=== PATIENT | female | born 2000 | race Caucasian/White ===

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

== ENCOUNTER → 2020-04-20 | Outpatient (REF) | payer OTHER ==
[~2020-04-20] MED LIST changes: +NAPR-837 PO
[2020-04-20 16:04] LABS: AMORPHOUS SEDIMENT LARGE (NEGATIVE); APPEARANCE, URINE TURBID (CLEAR); BACTERIA, URINE AUTO NEGATIVE (NEGATIVE); BILIRUBIN, URINE AUTO NEGATIVE (NEGATIVE); BLOOD, URINE BLOOD 3+ (NEGATIVE); COLOR, URINE YELLOW (YELLOW); GLUCOSE, URINE (UA) AUTO NEGATIVE (NEGATIVE); KETONE, URINE AUTO NEGATIVE (NEGATIVE); LEUKOCYTE ESTERASE, URINE AUTO NEGATIVE (NEGATIVE); MUCUS, URINE MODERATE (NEGATIVE); NITRITE, URINE AUTO NEGATIVE (NEGATIVE); PROTEIN, URINE AUTO 1+ mg/dL (NEGATIVE); RBC, URINE AUTO 2 /HPF (0-3); SPECIFIC GRAVITY URINE AUTO 1.028 (1.002-1.035); SQUAMOUS EPITHELIAL CELL UR AU 0 /HPF (0-6); UROBILINOGEN, URINE AUTO 0.2 mg/dL (0.0-2.0); WBC, URINE AUTO 0 /HPF (0-3)
== END ==
LOC: M SFHCLERA 15:37
PROVIDERS: ATTEND Family Medicine
DX: R30.0 Dysuria (principal)

== ENCOUNTER → 2020-04-21 | Outpatient (CLI) | payer OTHER ==
[2020-04-21 15:33] LABS: ALBUMIN 4.1 GM/DL (3.2-5.2); ALT/SGPT 38 U/L (12-78); BILIRUBIN,TOTAL 1.4 MG/DL (0.2-1.0); BLOOD UREA NITROGEN 11 MG/DL (7-18); CARBON DIOXIDE LEVEL 26 MEQ/L (21-32); CHLORIDE LEVEL 106 MEQ/L (98-107); CREATININE FOR GFR 0.52 MG/DL (0.55-1.30); FREE T4 0.96 NG/DL (0.78-1.33); GLUCOSE, FASTING 82 MG/DL (70-100); POTASSIUM SERUM 3.9 MEQ/L (3.5-5.1); SODIUM LEVEL 139 MEQ/L (136-145); THYROID STIMULATING HORMONE 0.651 uIU/ML (0.463-3.98)
[2020-04-21 15:53] LABS: BASO % 0.6 % (0.0-1.0); EOS # 0.1 10^3/uL (0.0-0.5); EOS % 1.4 % (0.0-3.0); HEMATOCRIT 36.4 % (36.0-47.0); HEMOGLOBIN 11.9 g/dl (12.0-15.5); LYMPH # 1.5 10^3/uL (1.5-5.0); LYMPH % 28.8 % (24.0-44.0); MEAN CORPUSCULAR HEMOGLOBIN 30.6 pg (27.0-33.0); MEAN CORPUSCULAR HGB CONC 32.7 g/dl (32.0-36.5); MEAN CORPUSCULAR VOLUME 93.6 fl (80.0-96.0); MONO # 0.4 10^3/uL (0.0-0.8); MONO % 7.5 % (2.0-8.0); NEUTROPHILS # 3.2 10^3/uL (1.5-8.5); NEUTROPHILS % 61.5 % (36.0-66.0); PLATELET COUNT, AUTOMATED 172 10^3/uL (150-450); RED BLOOD COUNT 3.89 10^6/uL (4.00-5.40); WHITE BLOOD COUNT 5.2 10^3/uL (4.0-10.0)
== END ==
LOC: M LAB 13:24
PROVIDERS: ATTEND Family Medicine
DX: R63.6 Underweight (principal)

== ENCOUNTER 2020-08-13 21:42 | Emergency (ER) | payer OTHER ==
[~2020-08-13] VITALS: Ht 160 cm; Wt 41.8 kg
[~2020-08-13 21:42] MED LIST changes: -SIME180C PO; +SIME180C25 PO
[2020-08-14 00:32] LABS: BASO # 0.1 10^3/uL (0.0-0.2); BASO % 0.7 % (0.0-1.0); EOS # 0.1 10^3/uL (0.0-0.5); EOS % 1.9 % (0.0-3.0); HEMATOCRIT 40.5 % (36.0-47.0); LYMPH # 2.2 10^3/uL (1.5-5.0); LYMPH % 29.7 % (24.0-44.0); MEAN CORPUSCULAR HEMOGLOBIN 30.2 pg (27.0-33.0); MEAN CORPUSCULAR HGB CONC 32.1 g/dl (32.0-36.5); MONO # 0.7 10^3/uL (0.0-0.8); MONO % 9.6 % (2.0-8.0); NEUTROPHILS # 4.2 10^3/uL (1.5-8.5); PLATELET COUNT, AUTOMATED 208 10^3/uL (150-450); RED BLOOD COUNT 4.31 10^6/uL (4.00-5.40); WHITE BLOOD COUNT 7.3 10^3/uL (4.0-10.0)
[2020-08-14 00:48] LABS: HCG, SERUM QUALITATIVE NEGATIVE (NEGATIVE)
[2020-08-14 00:52] LABS: ALBUMIN 4.4 GM/DL (3.2-5.2); ALT/SGPT 26 U/L (12-78); BILIRUBIN,DIRECT 0.2 MG/DL (0.0-0.2); BILIRUBIN,TOTAL 0.9 MG/DL (0.2-1.0); BLOOD UREA NITROGEN 12 MG/DL (7-18); CALCIUM LEVEL 9.3 MG/DL (8.5-10.1); CARBON DIOXIDE LEVEL 29 MEQ/L (21-32); CHLORIDE LEVEL 112 MEQ/L (98-107); GLUCOSE, FASTING 94 MG/DL (70-100); LIPASE 102 U/L (73-393); POTASSIUM SERUM 4.1 MEQ/L (3.5-5.1); SODIUM LEVEL 146 MEQ/L (136-145); TOTAL PROTEIN 7.8 GM/DL (6.4-8.2)
[2020-08-14] MEDS ORDERED: NS 1,000 ML IV ONE (01:05)
[2020-08-14] MEDS ORDERED: ISOVUE-370 76% 100ML VIAL As Ordered ONE (01:08)
--- NOTE | 2020-08-14 02:15 | REPVR ---
PROCEDURE INFORMATION: Exam: CT Abdomen And Pelvis With Contrast Exam date and time: 08/14/2020 1:01 AM Age: 19 years old Clinical indication: Abdominal pain; Localized; Left lower quadrant (llq); Additional info: Llq pain TECHNIQUE: Imaging protocol: Computed tomography of the abdomen and pelvis with contrast. Radiation optimization: All CT scans at this facility use at least one of these dose optimization techniques: automated exposure control; mA and/or kV adjustment per patient size (includes targeted exams where dose is matched to clinical indication); or iterative reconstruction. Contrast material: ISO; Contrast volume: 100 ml; Contrast route: INTRAVENOUS (IV); COMPARISON: 1. CT ABD PELVIS W/O CONTRAST 11/06/2019 3:18 AM 2. US PELVIC NON-OB COMPLETE 11/06/2019 2:04:04 AM FINDINGS: Lungs: The imaged portions of the lung bases are clear. The lungs were not fully imaged. Heart: No cardiomegaly or pericardial effusion. Diaphragm: Intact. Liver: Unremarkable. No liver lesion is identified. The contour of the liver is smooth. No hepatomegaly is noted. Gallbladder and bile ducts: No calcified gallstones are noted. No gallbladder wall thickening, pericholecystic fluid, or pericholecystic inflammatory changes are identified. No dilation of the bile ducts is noted. No calcified stones are seen in the common bile duct. Pancreas: Normal. No dilation of the main pancreatic duct is noted. Spleen: Normal. No splenomegaly is noted. Adrenal glands: Normal. No adrenal mass is noted. Kidneys and ureters: The kidneys are normal in appearance. No renal lesion is noted. No stones are noted in the kidneys or ureters. There is no hydronephrosis or hydroureter. There are no wedge-shaped areas of low attenuation in the kidneys to suggest pyelonephritis. There is no renal abscess or perinephric fluid collection. Stomach and bowel: The stomach and small bowel are unremarkable. There is no evidence for a bowel obstruction, diverticulosis, diverticulitis, perforated viscus, pneumatosis intestinalis, intussusception, or volvulus. The distal ascending colon, transverse colon, descending colon, and proximal sigmoid colon are decompressed, limiting their optimal evaluation. There is no pericolonic inflammatory fat stranding. Appendix: There are no findings to suggest acute appendicitis. Intraperitoneal space: There is a trace amount of water density free fluid in the cul-de-sac. No abscess or intraperitoneal free air is noted. Retroperitoneal space: No fluid collection. No mass. Vasculature: The abdominal aorta is patent, normal in caliber, and there is no dissection. The iliac arteries, common femoral arteries, renal arteries, celiac artery, superior mesenteric artery, and inferior mesenteric artery are patent. The common femoral veins, iliac veins, and inferior vena cava are patent. Incidental note is made of a circumaortic left renal vein. Lymph nodes: No enlarged lymph nodes. Urinary bladder: The partially distended urinary bladder is unremarkable. No stones or masses are seen in the bladder. Reproductive: The uterus is retroverted. There is a 2.4 cm dominant follicular cyst in the left ovary. The right ovary is unremarkable. Bones/joints: There is no fracture or dislocation. No suspicious osteolytic or osteoblastic lesion. Soft tissues: Incidental note is made of a piercing in the umbilical region. No hernia or soft tissue fluid collection is noted. IMPRESSION: 2.4 cm dominant follicular cyst in the left ovary and a trace amount of free fluid in the cul-de-sac. Electronically signed by: Aravind Echols On 08/14/2020 02:14:41 AM
[2020-08-14] MEDS ORDERED: NITROFURANTOIN (MACROBID) 100 MG CAP PO ONE (02:50)
[2020-08-14] MEDS ORDERED: MACR100C43 PO (02:54)
[2020-08-14 03:08] VITALS: BP 102/63
== END 2020-08-14 03:10 | disposition home or self-care (01) ==
LOC: M ED 21:42
DX: N39.0 Urinary tract infection, site not specified (principal); N83.202 Unspecified ovarian cyst, left side; K21.9 Gastro-esophageal reflux disease without esophagitis; Z79.899 Other long term (current) drug therapy
CPT/HCPCS: 74177; 80048; 80076; 81001; 83690; 84703; 85025; 87088; 87186; 96360; 96361; 99284; Q9967

== ENCOUNTER → 2020-12-27 | Outpatient (CLI) | payer OTHER ==
[~2020-12-27] MED LIST changes: +CEPH500C PO; +MACR100C43 PO
[2020-12-27 16:38] LABS: FREE T4 1.14 NG/DL (0.78-1.33); THYROID STIMULATING HORMONE 0.743 uIU/ML (0.463-3.98)
[2020-12-27 16:40] LABS: PROGESTERONE 7.73 NG/ML; PROLACTIN 7.9 NG/ML
[2020-12-27 16:41] LABS: LUTEINIZING HORMONE 2.2 mIU/mL
== END ==
LOC: M PLALAB 13:25
PROVIDERS: ATTEND Specialist
DX: N92.6 Irregular menstruation, unspecified (principal)
CPT/HCPCS: 36415; 83001; 83002; 84144; 84146; 84439; 84443; G0463

== ENCOUNTER → 2021-02-24 | Outpatient (CLI) | payer OTHER ==
[~2021-02-24] MED LIST changes: -CEPH500C PO
[2021-02-24 17:10] LABS: APPEARANCE, URINE CLEAR (CLEAR); BACTERIA, URINE AUTO 1+ (NEGATIVE); BILIRUBIN, URINE AUTO NEGATIVE (NEGATIVE); BLOOD, URINE BLOOD 1+ (NEGATIVE); COLOR, URINE STRAW (YELLOW); GLUCOSE, URINE (UA) AUTO NEGATIVE (NEGATIVE); KETONE, URINE AUTO NEGATIVE (NEGATIVE); LEUKOCYTE ESTERASE, URINE AUTO NEGATIVE (NEGATIVE); NITRITE, URINE AUTO NEGATIVE (NEGATIVE); PROTEIN, URINE AUTO NEGATIVE (NEGATIVE); RBC, URINE AUTO 2 /HPF (0-3); SPECIFIC GRAVITY URINE AUTO 1.005 (1.002-1.035); SQUAMOUS EPITHELIAL CELL UR AU 0 /HPF (0-6); UROBILINOGEN, URINE AUTO 0.2 mg/dL (0.0-2.0); WBC, URINE AUTO 3 /HPF (0-3)
== END ==
LOC: M PLALAB 15:27
PROVIDERS: ATTEND Obstetrics & Gynecology
DX: R30.0 Dysuria (principal)

== ENCOUNTER → 2021-03-04 | Outpatient (CLI) | payer OTHER ==
[~2021-03-04] MED LIST changes: +CEPH500C PO
[2021-03-04 17:15] LABS: BASO # 0.1 10^3/uL (0.0-0.2); BASO % 0.5 % (0.0-1.0); EOS # 0.1 10^3/uL (0.0-0.5); EOS % 1.3 % (0.0-3.0); HEMATOCRIT 36.2 % (36.0-47.0); HEMOGLOBIN 11.8 g/dl (12.0-15.5); LYMPH # 1.7 10^3/uL (1.5-5.0); LYMPH % 18.8 % (24.0-44.0); MEAN CORPUSCULAR HEMOGLOBIN 30.1 pg (27.0-33.0); MEAN CORPUSCULAR HGB CONC 32.6 g/dl (32.0-36.5); MEAN CORPUSCULAR VOLUME 92.3 fl (80.0-96.0); MONO # 0.7 10^3/uL (0.0-0.8); MONO % 7.2 % (2.0-8.0); NEUTROPHILS # 6.6 10^3/uL (1.5-8.5); PLATELET COUNT, AUTOMATED 195 10^3/uL (150-450); RED BLOOD COUNT 3.92 10^6/uL (4.00-5.40); WHITE BLOOD COUNT 9.2 10^3/uL (4.0-10.0)
[2021-03-04 18:25] LABS: HEPATITIS C VIRUS ABY INDEX < 0.0 INDEX (<0.8); HIV 1&2 SCREEN CENTAUR NEGATIVE (NEGATIVE)
[2021-03-04 19:28] LABS: GC DNA AMPLIFICATION NEGATIVE (NEGATIVE)
== END ==
LOC: M PLALAB 14:32
PROVIDERS: ATTEND Specialist
DX: Z34.01 Encounter for supervision of normal first pregnancy, first trimester (principal); Z3A.00 Weeks of gestation of pregnancy not specified

== ENCOUNTER 2021-03-06 16:36 | Emergency (ER) | payer OTHER ==
[~2021-03-06] VITALS: Ht 160 cm; Wt 46.4 kg
[~2021-03-06 16:36] MED LIST changes: -CEPH500C PO
[2021-03-06 16:40] VITALS: BP 112/64
[2021-03-06] MEDS ORDERED: ACETAMINOPHEN 500 MG TAB PO ONE (20:15)
[2021-03-06 21:57] LABS: BASO # 0.1 10^3/uL (0.0-0.2); BASO % 0.5 % (0.0-1.0); EOS # 0.1 10^3/uL (0.0-0.5); HEMATOCRIT 36.3 % (36.0-47.0); HEMOGLOBIN 12.2 g/dl (12.0-15.5); LYMPH % 19.1 % (24.0-44.0); MEAN CORPUSCULAR HEMOGLOBIN 30.1 pg (27.0-33.0); MEAN CORPUSCULAR HGB CONC 33.6 g/dl (32.0-36.5); MEAN CORPUSCULAR VOLUME 89.6 fl (80.0-96.0); MONO # 0.8 10^3/uL (0.0-0.8); MONO % 7.2 % (2.0-8.0); NEUTROPHILS # 7.6 10^3/uL (1.5-8.5); NEUTROPHILS % 71.9 % (36.0-66.0); PLATELET COUNT, AUTOMATED 185 10^3/uL (150-450); RED BLOOD COUNT 4.05 10^6/uL (4.00-5.40); WHITE BLOOD COUNT 10.5 10^3/uL (4.0-10.0)
[2021-03-06 22:42] LABS: BLOOD UREA NITROGEN 8 MG/DL (7-18); CALCIUM LEVEL 8.6 MG/DL (8.5-10.1); CARBON DIOXIDE LEVEL 24 MEQ/L (21-32); CHLORIDE LEVEL 108 MEQ/L (98-107); CREATININE FOR GFR 0.41 MG/DL (0.55-1.30); GLUCOSE, FASTING 117 MG/DL (70-100); HCG, SERUM QUANTITATIVE 111979 MIU/ML; POTASSIUM SERUM 3.7 MEQ/L (3.5-5.1); SODIUM LEVEL 139 MEQ/L (136-145)
[2021-03-06] MEDS ORDERED: CEPHALEXIN 500 MG CAP PO ONE (22:45)
[2021-03-06] MEDS ORDERED: CEPH500C PO (22:47)
== END 2021-03-06 22:56 | disposition home or self-care (01) ==
LOC: M ED 16:36
DX: O23.41 Unspecified infection of urinary tract in pregnancy, first trimester (principal); Z3A.08 8 weeks gestation of pregnancy; O99.341 Other mental disorders complicating pregnancy, first trimester; O99.611 Diseases of the digestive system complicating pregnancy, first trimester; Z87.448 Personal history of other diseases of urinary system; Z79.899 Other long term (current) drug therapy

== ENCOUNTER → 2021-04-01 | Outpatient (CLI) | payer OTHER ==
[~2021-04-01] MED LIST changes: +CEPH500C PO
== END ==
LOC: M PLALAB 09:50
PROVIDERS: ATTEND Specialist
DX: Z34.81 Encounter for supervision of other normal pregnancy, first trimester (principal); Z3A.12 12 weeks gestation of pregnancy
CPT/HCPCS: 36415; G0463

== ENCOUNTER → 2021-05-26 | Outpatient (CLI) | payer OTHER | LOC: M WHC 07:49 | PROVIDERS: ATTEND Specialist | DX: Z36.89 Encounter for other specified antenatal screening (principal); Z34.02 Encounter for supervision of normal first pregnancy, second trimester; Z3A.19 19 weeks gestation of pregnancy ==

== ENCOUNTER → 2021-06-06 | Outpatient (REF) | payer OTHER | LOC: M SFHCWAGY 13:10 | PROVIDERS: ATTEND Advanced Practice Midwife | DX: Z34.92 Encounter for supervision of normal pregnancy, unspecified, second trimester (principal); Z3A.20 20 weeks gestation of pregnancy | CPT/HCPCS: 87086; G0463 ==

== ENCOUNTER 2021-06-30 08:04 | Emergency (ER) | payer OTHER ==
[~2021-06-30] VITALS: Ht 160 cm; Wt 56.4 kg
[2021-06-30 08:05] VITALS: BP 120/67
[2021-06-30] MEDS ORDERED: PRENTAB9 PO (08:40)
== END 2021-07-01 05:12 | disposition left against medical advice (07) ==
LOC: M ED 08:04
DX: Z53.21 Procedure and treatment not carried out due to patient leaving prior to being seen by health care provider (principal)

== ENCOUNTER 2021-06-30 08:20 | Outpatient (CLI) | payer OTHER ==
[~2021-06-30] VITALS: Ht 160 cm; Wt 56.7 kg
[2021-06-30] MEDS ORDERED: PRENTAB9 PO (08:40)
[2021-06-30 08:42] VITALS: BP 111/66
[2021-06-30] MEDS ORDERED: HOME MED LIST COMPLETE! XX SCH (09:05)
== END 2021-06-30 10:00 | disposition home or self-care (01) ==
LOC: M LDO 08:20
PROVIDERS: ATTEND Specialist
DX: O26.892 Other specified pregnancy related conditions, second trimester (principal); N89.8 Other specified noninflammatory disorders of vagina; Z3A.24 24 weeks gestation of pregnancy
CPT/HCPCS: 76815; G0378

== ENCOUNTER → 2021-07-12 | Outpatient (CLI) | payer OTHER ==
[~2021-07-12] MED LIST changes: +PRENTAB9 PO
[2021-07-12 14:11] LABS: HEMATOCRIT 34.5 % (36.0-47.0); HEMOGLOBIN 11.4 g/dl (12.0-15.5); MEAN CORPUSCULAR HEMOGLOBIN 31.8 pg (27.0-33.0); MEAN CORPUSCULAR VOLUME 96.1 fl (80.0-96.0); PLATELET COUNT, AUTOMATED 228 10^3/uL (150-450); RED BLOOD COUNT 3.59 10^6/uL (4.00-5.40); WHITE BLOOD COUNT 8.9 10^3/uL (4.0-10.0)
[2021-07-12 16:00] LABS: GC DNA AMPLIFICATION NEGATIVE (NEGATIVE)
== END ==
LOC: M PLALAB 10:00
PROVIDERS: ATTEND Specialist
DX: Z34.02 Encounter for supervision of normal first pregnancy, second trimester (principal)

== ENCOUNTER → 2021-07-21 | Outpatient (CLI) | payer OTHER | LOC: M LAB 06:38 | PROVIDERS: ATTEND Specialist | DX: Z34.02 Encounter for supervision of normal first pregnancy, second trimester (principal); Z3A.00 Weeks of gestation of pregnancy not specified ==

== ENCOUNTER → 2021-08-22 | Outpatient (CLI) | payer OTHER | LOC: M WHC 09:25 | PROVIDERS: ATTEND Specialist | DX: Z34.03 Encounter for supervision of normal first pregnancy, third trimester (principal); Z36.89 Encounter for other specified antenatal screening; Z3A.31 31 weeks gestation of pregnancy ==

== ENCOUNTER → 2021-09-02 | Outpatient (CLI) | payer OTHER | LOC: M WHC 09:27 | PROVIDERS: ATTEND Specialist | DX: O36.5990 Maternal care for other known or suspected poor fetal growth, unspecified trimester, not applicable or unspecified (principal) ==

== ENCOUNTER 2021-09-08 16:05 | Outpatient (CLI) | payer OTHER ==
[~2021-09-08] VITALS: Ht 160 cm; Wt 64.3 kg
== END 2021-09-08 18:20 | disposition home or self-care (01) ==
LOC: M LDO 16:05
PROVIDERS: ATTEND Obstetrics & Gynecology
DX: O36.5930 Maternal care for other known or suspected poor fetal growth, third trimester, not applicable or unspecified (principal); Z3A.34 34 weeks gestation of pregnancy
CPT/HCPCS: 59025; 76815; 76819; 76820; G0463

== ENCOUNTER → 2021-09-09 | Outpatient (CLI) | payer OTHER | LOC: M WHC 06:48 | PROVIDERS: ATTEND Specialist | DX: O36.5993 Maternal care for other known or suspected poor fetal growth, unspecified trimester, fetus 3 (principal); Z3A.34 34 weeks gestation of pregnancy ==

== ENCOUNTER → 2021-09-13 | Outpatient (CLI) | payer OTHER | LOC: M WHC 14:22 | PROVIDERS: ATTEND Specialist | DX: O36.5993 Maternal care for other known or suspected poor fetal growth, unspecified trimester, fetus 3 (principal); Z3A.35 35 weeks gestation of pregnancy ==

== ENCOUNTER → 2021-09-23 | Outpatient (CLI) | payer OTHER ==
[~2021-09-23] MED LIST changes: +AUGM500T34 PO; +CEPH25SS PO; +IBUP80TA PO; +METO50TA7; +OXYC1TAB23 PO; +PYRI1TAB5 PO
== END ==
LOC: M WHC 08:49
PROVIDERS: ATTEND Obstetrics & Gynecology
DX: O36.5993 Maternal care for other known or suspected poor fetal growth, unspecified trimester, fetus 3 (principal); Z3A.36 36 weeks gestation of pregnancy

== ENCOUNTER → 2021-09-23 | Outpatient (REF) | payer OTHER ==
[~2021-09-23] MED LIST changes: -AUGM500T34 PO; -CEPH25SS PO; -IBUP80TA PO; -METO50TA7; -OXYC1TAB23 PO; -PYRI1TAB5 PO
== END ==
LOC: M PLALAB 08:39
PROVIDERS: ATTEND Obstetrics & Gynecology
DX: Z36.85 Encounter for antenatal screening for Streptococcus B (principal); Z3A.36 36 weeks gestation of pregnancy

== ENCOUNTER 2021-10-23 15:27 | Emergency (ER) | payer OTHER ==
[~2021-10-23] VITALS: Ht 152.4 cm; Wt 59.9 kg
[~2021-10-23 15:27] MED LIST changes: +IBUP80TA PO; +OXYC1TAB23 PO
[2021-10-23 15:28] VITALS: BP 104/58
[2021-10-23] MEDS ORDERED: METO50TA7 (16:08)
[2021-10-23] MEDS ORDERED: AUGM500T34 PO (18:49)
[2021-10-23] MEDS ORDERED: PHENAZOPYRIDINE 100 MG TAB PO ONE (19:30)
[2021-10-23] MEDS ORDERED: PYRI1TAB5 PO (19:30)
[2021-10-23] MEDS ORDERED: MACR100C43 PO (19:30)
[2021-10-23] MEDS ORDERED: NITROFURANTOIN (MACROBID) 100 MG CAP PO ONE (19:30)
== END 2021-10-23 19:46 | disposition home or self-care (01) ==
LOC: M ED 15:27
DX: N39.0 Urinary tract infection, site not specified (principal); L70.0 Acne vulgaris; K21.9 Gastro-esophageal reflux disease without esophagitis; I73.1 Thromboangiitis obliterans [Buerger's disease]; F41.9 Anxiety disorder, unspecified

== ENCOUNTER 2021-10-28 22:10 | Emergency (ER) | payer OTHER ==
[~2021-10-28] VITALS: Ht 160 cm; Wt 61.2 kg
[~2021-10-28 22:10] MED LIST changes: +AUGM500T34 PO; +METO50TA7; +PYRI1TAB5 PO
[2021-10-28 22:11] VITALS: BP 112/62
[2021-10-28] MEDS ORDERED: CEPH25SS PO (22:40)
== END 2021-10-28 23:25 | disposition left against medical advice (07) ==
LOC: M ED 22:10
DX: Z53.21 Procedure and treatment not carried out due to patient leaving prior to being seen by health care provider (principal)

== ENCOUNTER 2021-11-05 06:33 | Emergency (ER) | payer OTHER ==
[~2021-11-05] VITALS: Ht 160 cm; Wt 59.5 kg
[~2021-11-05 06:33] MED LIST changes: +CEPH25SS PO
[2021-11-05 08:07] VITALS: BP 109/68
[2021-11-05] MEDS ORDERED: PRED20TA PO (08:45)
[2021-11-05] MEDS ORDERED: PEPC1TAB5 PO (08:46)
[2021-11-05] MEDS ORDERED: BENA25CA4 PO (08:47)
[2021-11-05] MEDS ORDERED: FAMOTIDINE 20 MG TAB PO ONE (08:55)
[2021-11-05] MEDS ORDERED: predniSONE 20 MG TAB PO ONE (08:55)
== END 2021-11-05 09:30 | disposition home or self-care (01) ==
LOC: M ED 06:33
DX: T78.40XA Allergy, unspecified, initial encounter (principal); F41.9 Anxiety disorder, unspecified; I73.1 Thromboangiitis obliterans [Buerger's disease]; Z79.899 Other long term (current) drug therapy; Z88.1 Allergy status to other antibiotic agents
CPT/HCPCS: 99283; J7512

== ENCOUNTER 2021-11-07 00:01 | Emergency (ER) | payer OTHER ==
[~2021-11-07] VITALS: Ht 161.3 cm; Wt 59.7 kg
[~2021-11-07 00:01] MED LIST changes: +BENA25CA4 PO; -METO50TA7; +PEPC1TAB5 PO; +PRED20TA PO
[2021-11-07 01:03] LABS: VENOUS BASE EXCESS -4.2 (-2.0-2.0); VENOUS HCO3 18.9 MEQ/L (23.0-27.0); VENOUS O2 SATURATION 98.3 % (60.0-80.0); VENOUS PARTIAL PRESSURE CO2 28.6 mmHg (38.0-50.0); VENOUS PARTIAL PRESSURE O2 121.9 mmHg (30.0-50.0); VENOUS PH 7.438 UNITS (7.330-7.430); VENOUS TOTAL CO2 19.8 MEQ/L (24.0-28.0)
[2021-11-07 01:05] LABS: BASO % 0.4 % (0.0-1.0); EOS # 0.1 10^3/uL (0.0-0.5); EOS % 0.5 % (0.0-3.0); HEMATOCRIT 37.2 % (36.0-47.0); HEMOGLOBIN 11.9 g/dl (12.0-15.5); LYMPH # 2.1 10^3/uL (1.5-5.0); MEAN CORPUSCULAR HEMOGLOBIN 28.4 pg (27.0-33.0); MEAN CORPUSCULAR VOLUME 88.8 fl (80.0-96.0); MONO # 0.8 10^3/uL (0.0-0.8); MONO % 8.8 % (2.0-8.0); NEUTROPHILS # 6.2 10^3/uL (1.5-8.5); NEUTROPHILS % 67.1 % (36.0-66.0); PLATELET COUNT, AUTOMATED 192 10^3/uL (150-450); RED BLOOD COUNT 4.19 10^6/uL (4.00-5.40); WHITE BLOOD COUNT 9.3 10^3/uL (4.0-10.0)
[2021-11-07 01:41] LABS: CK-MB VALUE MASS < 1.0 NG/ML (<3.6); CPK CREATINE PHOSPHOKINASE 49 U/L (26-192); MB/CK RELATIVE INDEX 2.04 (< OR =4)
[2021-11-07 01:50] LABS: BLOOD UREA NITROGEN 12 MG/DL (7-18); CALCIUM LEVEL 9.4 MG/DL (8.5-10.1); CARBON DIOXIDE LEVEL 24 MEQ/L (21-32); CHLORIDE LEVEL 109 MEQ/L (98-107); CREATININE FOR GFR 0.62 MG/DL (0.55-1.30); FREE T4 1.06 NG/DL (0.76-1.46); GLOMERULAR FILTRATION RATE > 60.0 (>60); GLUCOSE, FASTING 126 MG/DL (70-100); MAGNESIUM LEVEL 1.8 MG/DL (1.8-2.4); POTASSIUM SERUM 4.1 MEQ/L (3.5-5.1); SODIUM LEVEL 141 MEQ/L (136-145)
[2021-11-07 02:01] LABS: HCG, SERUM QUALITATIVE NEGATIVE (NEGATIVE)
[2021-11-07] MEDS ORDERED: LORazepam 2 MG/ML VIAL IV STA (03:09)
[2021-11-07] MEDS ORDERED: ISOVUE-370 76% 100ML VIAL As Ordered ONE (03:15)
[2021-11-07 06:11] VITALS: BP 95/52
== END 2021-11-07 06:17 | disposition home or self-care (01) ==
LOC: M ED 00:01
DX: F41.0 Panic disorder [episodic paroxysmal anxiety] (principal); I73.1 Thromboangiitis obliterans [Buerger's disease]; Z79.899 Other long term (current) drug therapy; Z88.1 Allergy status to other antibiotic agents
CPT/HCPCS: 71045; 71275; 80048; 82550; 82553; 82803; 83735; 84439; 84443; 84484; 84703; 85025; 85379; 93005; 93041; 94760; 96374; 99285; J2060; Q9967

== ENCOUNTER 2021-11-08 09:30 | Emergency (ER) | payer OTHER ==
[~2021-11-08] VITALS: Ht 160 cm; Wt 59.5 kg
[~2021-11-08 09:30] MED LIST changes: +METO50TA7
[2021-11-08 10:30] LABS: BASO % 0.7 % (0.0-1.0); EOS # 0.1 10^3/uL (0.0-0.5); EOS % 0.9 % (0.0-3.0); HEMATOCRIT 39.4 % (36.0-47.0); HEMOGLOBIN 12.7 g/dl (12.0-15.5); LYMPH % 35.5 % (24.0-44.0); MEAN CORPUSCULAR HEMOGLOBIN 28.8 pg (27.0-33.0); MEAN CORPUSCULAR HGB CONC 32.2 g/dl (32.0-36.5); MEAN CORPUSCULAR VOLUME 89.3 fl (80.0-96.0); MONO # 0.5 10^3/uL (0.0-0.8); MONO % 9.4 % (2.0-8.0); NEUTROPHILS % 53.3 % (36.0-66.0); PLATELET COUNT, AUTOMATED 206 10^3/uL (150-450); RED BLOOD COUNT 4.41 10^6/uL (4.00-5.40); WHITE BLOOD COUNT 5.7 10^3/uL (4.0-10.0)
[2021-11-08 10:45] VITALS: BP 108/65
[2021-11-08 11:02] LABS: HCG, SERUM QUALITATIVE NEGATIVE (NEGATIVE)
[2021-11-08 11:17] LABS: ALBUMIN 3.7 GM/DL (3.2-5.2); ALT/SGPT 21 U/L (12-78); BILIRUBIN,DIRECT 0.2 MG/DL (0.0-0.2); BILIRUBIN,TOTAL 0.7 MG/DL (0.2-1.0); BLOOD UREA NITROGEN 9 MG/DL (7-18); CALCIUM LEVEL 9.1 MG/DL (8.5-10.1); CARBON DIOXIDE LEVEL 27 MEQ/L (21-32); CHLORIDE LEVEL 108 MEQ/L (98-107); CREATININE FOR GFR 0.61 MG/DL (0.55-1.30); FREE T4 1.11 NG/DL (0.76-1.46); GLOMERULAR FILTRATION RATE > 60.0 (>60); GLUCOSE, FASTING 90 MG/DL (70-100); POTASSIUM SERUM 3.7 MEQ/L (3.5-5.1); SODIUM LEVEL 140 MEQ/L (136-145); TOTAL PROTEIN 7.1 GM/DL (6.4-8.2)
== END 2021-11-08 11:48 | disposition home or self-care (01) ==
LOC: M ED 09:30
DX: R00.2 Palpitations (principal); Z79.899 Other long term (current) drug therapy; Z88.8 Allergy status to other drugs, medicaments and biological substances

== ENCOUNTER 2021-11-10 11:51 | Inpatient (IN) | payer OTHER ==
[~2021-11-10] VITALS: Ht 160 cm; Wt 57.6 kg
[~2021-11-10 11:51] MED LIST changes: -METO50TA7
[2021-11-10 13:37] LABS: HEMATOCRIT 40.1 % (36.0-47.0); HEMOGLOBIN 12.9 g/dl (12.0-15.5); MEAN CORPUSCULAR HEMOGLOBIN 28.7 pg (27.0-33.0); MEAN CORPUSCULAR HGB CONC 32.2 g/dl (32.0-36.5); MEAN CORPUSCULAR VOLUME 89.3 fl (80.0-96.0); PLATELET COUNT, AUTOMATED 236 10^3/uL (150-450); RED BLOOD COUNT 4.49 10^6/uL (4.00-5.40); WHITE BLOOD COUNT 6.8 10^3/uL (4.0-10.0)
[2021-11-10 14:08] LABS: HCG, SERUM QUALITATIVE NEGATIVE (NEGATIVE)
[2021-11-10 14:23] LABS: ACETAMINOPHEN LEVEL < 2.0 UG/ML (10.0-30.0); ALT/SGPT 19 U/L (12-78); BILIRUBIN,DIRECT 0.2 MG/DL (0.0-0.2); BILIRUBIN,TOTAL 0.7 MG/DL (0.2-1.0); BLOOD UREA NITROGEN 9 MG/DL (7-18); CALCIUM LEVEL 9.3 MG/DL (8.5-10.1); CARBON DIOXIDE LEVEL 25 MEQ/L (21-32); CHLORIDE LEVEL 109 MEQ/L (98-107); CREATININE FOR GFR 0.58 MG/DL (0.55-1.30); ETHYL ALCOHOL (ETHANOL) < 0.003 % (0.000-0.010); GLOMERULAR FILTRATION RATE > 60.0 (>60); GLUCOSE, FASTING 91 MG/DL (70-100); POTASSIUM SERUM 4.7 MEQ/L (3.5-5.1); SALICYLATE LEVEL < 1.7 MG/DL (5.0-30.0); SODIUM LEVEL 143 MEQ/L (136-145); TOTAL PROTEIN 7.3 GM/DL (6.4-8.2)
[2021-11-10 14:30] LABS: RSV AMPLIFICATION NEGATIVE (NEGATIVE)
[2021-11-10 16:27] LABS: AMPHETAMINES LEVEL URINE NEGATIVE (NEGATIVE); BARBITURATES URINE NEGATIVE (NEGATIVE); BENZODIAZEPINES URINE NEGATIVE (NEGATIVE); CANNABINOIDS URINE NEGATIVE (NEGATIVE); COCAINE METABOLITE URINE NEGATIVE (NEGATIVE); METHADONE URINE NEGATIVE (NEGATIVE); OPIATES URINE NEGATIVE (NEGATIVE); PHENCYCLIDINE URINE NEGATIVE (NEGATIVE)
[2021-11-10] MEDS ORDERED: METOPROLOL TART 50 MG TAB PO SCH (19:00)
[2021-11-10] MEDS ORDERED: IBUP80TA PO (20:00)
[2021-11-10] MEDS ORDERED: HOME MED LIST COMPLETE! XX SCH (20:05)
[2021-11-10] MEDS ORDERED: MAALOX 30 ML SUSP *UDC PO PRN (20:15)
[2021-11-10] MEDS ORDERED: IBUPROFEN 800 MG TAB PO PRN (20:15)
[2021-11-10] MEDS ORDERED: ACETAMINOPHEN TAB 650MG DOSE (2X325MG) PO PRN (20:15)
[2021-11-10] MEDS ORDERED: traZODone 50 MG TAB PO PRN (20:15)
[2021-11-10] MEDS ORDERED: MOM 30ML SUSPENSION UDC PO PRN (20:15)
[2021-11-10] MEDS ORDERED: diphenhydrAMINE 25MG CAP PO PRN (20:15)
[2021-11-10] MEDS ORDERED: ACETAMINOPHEN TAB 650MG DOSE (2X325MG) PO ONE (20:30)
[2021-11-10 21:31] VITALS: BP 103/58
[2021-11-11 06:38] VITALS: BP 113/55
[2021-11-11] MEDS: METOPROLOL TART 50 MG TAB PO SCH ×2 (09:41→22:00)
[2021-11-11 18:00] VITALS: BP 126/63
[2021-11-11] MEDS ORDERED: SERTRALINE HCL 25 MG TABLET PO ONE (21:00)
[2021-11-11] MEDS ORDERED: hydrOXYzine 50 MG TAB PO PRN (22:00)
[2021-11-12 06:38] VITALS: BP 103/64
[2021-11-12] MEDS: METOPROLOL TART 50 MG TAB PO SCH ×2 (09:15→21:23)
[2021-11-12 16:55] VITALS: BP 110/62
[2021-11-12] MEDS: SERTRALINE HCL 50 MG TAB PO SCH (21:23)
[2021-11-13 06:49] VITALS: BP 99/51
[2021-11-13 06:54] VITALS: BP 119/69
[2021-11-13] MEDS: METOPROLOL TART 50 MG TAB PO SCH ×2 (09:09→23:01)
[2021-11-13] MEDS ORDERED: RIZATRIPTAN BENZOATE 10 MG TAB PO ONE (12:50)
[2021-11-13 16:35] VITALS: BP 98/66
[2021-11-13] MEDS: SERTRALINE HCL 50 MG TAB PO SCH (21:31)
[2021-11-14 06:58] VITALS: BP 98/71
[2021-11-14] MEDS: METOPROLOL TART 50 MG TAB PO SCH ×2 (10:00→20:41)
[2021-11-14] MEDS ORDERED: HYDR-3363 PO (11:47)
[2021-11-14] MEDS ORDERED: SERT50TA29 PO (11:47)
[2021-11-14] MEDS ORDERED: HYDR-643 PO (11:47)
[2021-11-14 18:00] VITALS: BP 118/66
[2021-11-14] MEDS: SERTRALINE HCL 50 MG TAB PO SCH (20:41)
[2021-11-15 06:25] VITALS: BP 116/77
[2021-11-15] MEDS: METOPROLOL TART 50 MG TAB PO SCH ×2 (08:36→21:32)
[2021-11-15 18:49] VITALS: BP 117/75
[2021-11-15] MEDS: busPIRone 5 MG TAB PO SCH (21:00)
[2021-11-15] MEDS: SERTRALINE HCL 50 MG TAB PO SCH (21:32)
[2021-11-16 06:59] VITALS: BP 115/56
[2021-11-16] MEDS: busPIRone 5 MG TAB PO SCH ×2 (11:15→22:26)
[2021-11-16] MEDS: METOPROLOL TART 50 MG TAB PO SCH ×2 (11:16→22:26)
[2021-11-16 18:31] VITALS: BP 103/60
[2021-11-16] MEDS: SERTRALINE HCL 50 MG TAB PO SCH (22:26)
[2021-11-17 06:50] VITALS: BP 107/52
[2021-11-17 09:33] VITALS: BP 110/64
[2021-11-17] MEDS: busPIRone 5 MG TAB PO SCH (09:33)
[2021-11-17] MEDS: METOPROLOL TART 50 MG TAB PO SCH (09:33)
[2021-11-17] MEDS ORDERED: BUSP5TA PO (10:05)
== END 2021-11-17 16:06 | disposition home or self-care (01) | DRG 881 ==
LOC: M ED 11:51 → M ED INP 20:11 → M PSY 21:17
PROVIDERS: ADMIT Psychiatry & Neurology Psychiatry; ATTEND Psychiatry & Neurology Psychiatry
DX: F53.0 Postpartum depression (principal); R45.851 Suicidal ideations; N02.8 Recurrent and persistent hematuria with other morphologic changes; F41.0 Panic disorder [episodic paroxysmal anxiety]; Z88.8 Allergy status to other drugs, medicaments and biological substances; Z79.899 Other long term (current) drug therapy

== ENCOUNTER 2021-12-27 17:49 | Emergency (ER) | payer OTHER ==
[~2021-12-27] VITALS: Ht 160 cm; Wt 59.5 kg
[~2021-12-27 17:49] MED LIST changes: +BUSP5TA PO; +HYDR-643 PO; +SERT50TA29 PO
[2021-12-27] MEDS ORDERED: B-2100TA (18:22)
[2021-12-27] MEDS ORDERED: MAGN400T2 (18:22)
[2021-12-27] MEDS ORDERED: BUSP15TA47 (18:22)
[2021-12-27 21:03] VITALS: BP 110/56
== END 2021-12-27 21:40 | disposition home or self-care (01) ==
LOC: M ED 17:49
DX: T59.91XA Toxic effect of unspecified gases, fumes and vapors, accidental (unintentional), initial encounter (principal); K21.9 Gastro-esophageal reflux disease without esophagitis; F41.9 Anxiety disorder, unspecified; D80.2 Selective deficiency of immunoglobulin A [IgA]; Z79.899 Other long term (current) drug therapy; Z88.1 Allergy status to other antibiotic agents

== ENCOUNTER → 2022-07-18 | Outpatient (CLI) | payer OTHER ==
[~2022-07-18] MED LIST changes: +B-2100TA; +BUSP15TA47; +MAGN400T2
[2022-07-18 15:34] LABS: HEMATOCRIT 38.6 % (36.0-47.0); HEMOGLOBIN 12.5 g/dl (12.0-15.5); MEAN CORPUSCULAR HEMOGLOBIN 29.1 pg (27.0-33.0); MEAN CORPUSCULAR HGB CONC 32.4 g/dl (32.0-36.5); MEAN CORPUSCULAR VOLUME 89.8 fl (80.0-96.0); PLATELET COUNT, AUTOMATED 237 10^3/uL (150-450); WHITE BLOOD COUNT 8.9 10^3/uL (4.0-10.0)
[2022-07-18 16:06] LABS: HIV 1&2 SCREEN NEGATIVE (NEGATIVE)
[2022-07-18 16:13] LABS: HEMOGLOBIN A1c 5.4 % (4.0-6.0)
[2022-07-18 16:15] LABS: HEPATITIS C VIRUS ABY INDEX 0.1 INDEX (<0.8)
[2022-07-18 16:25] LABS: GC DNA AMPLIFICATION NEGATIVE (NEGATIVE)
== END ==
LOC: M PLALAB 10:11
PROVIDERS: ATTEND Advanced Practice Midwife
DX: Z34.81 Encounter for supervision of other normal pregnancy, first trimester (principal)